=== PATIENT | female | born 1970 | race African-American/Black ===

== ENCOUNTER 2017-06-30 15:53 | Emergency (ER) | payer MEDICAID ==
[~2017-06-30] VITALS: Ht 180.3 cm; Wt 100.0 kg
[2017-07-01] MEDS ORDERED: ACETAMINOPHEN 500MG TABLET PO ONE (01:00)
[2017-07-01 01:10] VITALS: BP 128/85
== END 2017-07-01 01:25 | disposition home or self-care (01) ==
LOC: ER 16:05
DX: S06.0X0A Concussion without loss of consciousness, initial encounter (principal); J45.909 Unspecified asthma, uncomplicated; Y04.0XXA Assault by unarmed brawl or fight, initial encounter; Y93.89 Activity, other specified; Y92.89 Other specified places as the place of occurrence of the external cause
CPT/HCPCS: 99283